=== PATIENT | male | born 1950 | race Caucasian/White ===

== ENCOUNTER 2023-10-03 11:23 | Emergency (ER) | payer MEDICARE, OTHER, SELFPAY ==
[2023-10-03 11:27] VITALS: BP 162/78
--- NOTE | 2023-10-03 13:16 | ED.GENMED ---
History of Present Illness
General
Chief Complaint: Musculo-Skeletal Complaint
Source: patient
Exam Limitations: none
Time Seen by Provider: 10/03/23 11:55
Nursing documentation reviewed up to this point in time: agreed with
Travel History
Have you had any contact with someone who has COVID-19?: No
Do you have any symptoms of coronavirus? Fever > 100 degrees, chills, cough, shortness of breath, sore throat, loss of taste or smell, muscle aches, or headache?: No
History of Present Illness
History of Present Illness:
73-year-old male with Rafael history of hypertension hyperlipidemia previous vascular surgery on his lower extremities currently on Plavix presenting to the emergency department today with concerns of swelling to his right upper extremity over the
past few days. He was sent to the emergency department for assessment with ultrasound by the primary care doctor. Denies any chest pain shortness of breath or additional concerns.
Past History
Past History
ED Past Medical History: GERD, HTN, Hypercholesterolemia and Other (Peripheral vascular disease, kidney stones)
ED Past Surgical History: Orthopedic, Urological and Other
Social History
Tobacco: Non-smoker
Alcohol: Occasional
Drug: None
Living: with family
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
Family History
Family History: Other (Noncontributory)
Review of Systems
Review of Systems
Allergies reviewed?: Yes
All Other Systems: ROS reviewed and negative except as documented in HPI and ROS
Phy Exam
Physical Exam
Physical Exam:
GENERAL: Alert , in no apparent distress
EYE: pupils equal and reactive
NECK: Supple, no significant adenopathy.
ENT: o/p clr, mmm.
CARDIAC: Regular rate and rhythm .
LUNGS: Clear breath sounds bilaterally, no acute respiratory distress, no wheezes/rales/rhonchi
ABDOMEN: Soft, without focal tenderness, no r/g, no cvat
NEUROLOGICAL: Alert and oriented, no focal neuro deficits
SKIN: Warm and dry, skin intact.
MUSCULOSKELETAL: Mild redness and warmth of the right forearm on the medial aspect. Does not cross the elbow., well perfused.
PSYCH: Normal and appropriate interaction.
Course
Orders/Labs/Results
Orders:
Orders
10/03/23 11:25
US Periph Venous UPPER Ext RT Urgent
Comment:
Reason For Exam: pain/swelling
Vital Signs
Initial and Last Documented VS:
Initial Vital Signs
Temp Pulse Resp BP Pulse Ox
98.0 F 54 17 162/78 99
10/03/23 11:27 10/03/23 11:27 10/03/23 11:27 10/03/23 11:27 10/03/23 11:27
Last Documented Vital Signs
Temp Pulse Resp BP Pulse Ox
98.0 F 54 17 162/78 99
10/03/23 11:27 10/03/23 11:27 10/03/23 11:27 10/03/23 11:27 10/03/23 11:27
MDM/Problems Addressed
MDM/Problems Addressed:
73-year-old male presenting to the emergency department today with concerns of small mount of redness and swelling to the right forearm over the past few days no specific inciting event. He had an ultrasound here that showed a superficial thrombus
to the basilic. This is not consistent with DVT patient was not started on anticoagulant but advised for close outpatient follow-up and conservative treatment at this time. He demonstrated understanding and will follow-up closely. Return
precautions given.
*Critical Care Note
Total Time (30-74mins, 75-104mins- exclusive of procedures): Not Applicable
ED Attending Note
-
Portions of this chart may have been created with voice recognition software.� Occasional wrong word or��sound alike� substitutions may have occurred due to the inherent limitations of voice recognition software.
Discharge Plan
Departure
Patient Disposition: Home (Routine Discharge)
Date of Disposition: 10/03/23
Time of Disposition: 13:17
Patient with high blood pressure during this ER visit?: No
Condition: Good
Covid-19: Not Applicable
Discharge Problem:
Acute thrombosis of superficial veins of right upper extremity
Instructions: Superficial vein phlebitis and thrombosis
Prescriptions:
No Action
multivitamin [One Daily] 1 EACH tablet
1 ea PO DAILY
cetirizine 10 MG tablet
10 mg PO DAILY
amlodipine 5 MG tablet
5 mg PO DAILY
aspirin [Adult Low Dose Aspirin] 81 MG tablet,delayed release (DR/EC)
81 mg PO HS
tamsulosin [Flomax] 0.4 MG capsule
0.4 mg PO QPM
docusate sodium 100 MG capsule
100 mg PO DAILY
gabapentin 300 MG capsule
300 mg PO QID
diazepam [Valium] 10 MG tablet
10 mg PO HS
lisinopril 40 MG tablet
40 mg PO DAILY
coenzyme Q10 [Co Q-10] 100 MG capsule
200 mg PO DAILY
krill oil 500 MG capsule
500 mg PO DAILY
L.acidoph, paracasei,B. lactis 1 EACH capsule
1 ea PO QPM
clopidogrel 75 MG tablet
75 mg PO DAILY Qty: 30 0RF
ezetimibe 10 MG tablet
10 mg PO HS
magnesium oxide 500 MG capsule
500 mg PO DAILY
ascorbic acid (vitamin C) [Vitamin C] 500 MG tablet
500 mg PO DAILY
famotidine 20 MG tablet
20 mg PO BID
oxycodone-acetaminophen 1 EACH tablet
1 ea PO QID
rosuvastatin 10 MG tablet
10 mg PO MOWEFR
Patient Comments:
PT TAKES IN PM
gabapentin 300 mg capsule
300 mg PO BID Qty: 30 0RF
amoxicillin-pot clavulanate 875-125 mg tablet
1 tab PO BID Qty: 14 0RF
Activity Restrictions/Additional Instructions:
You came to the emergency department today with concerns of swelling discomfort to the right upper extremity. You are found to have a clot in your basilic vein. This is considered a superficial vein and does not require emergent anticoagulation.
Please use warm compresses to the area and elevate your arm to help with symptoms and follow close with the primary care doctor within 1 week for further assessment and monitoring of this. Return to the emergency department any worsening, new or
concerning symptoms.
Interventions
Interventions:
*Risk Screen - Suicide Last Done: 10/03/23 11:27
*General Assessment Last Done: 10/03/23 11:27
*Neglect/Abuse Screening Last Done: 10/03/23 11:27
*ED COVID-19 Vaccine History Last Done: 10/03/23 11:27
[2023-10-03 13:21] VITALS: BP 153/87
== END 2023-10-03 13:27 | disposition home or self-care (01) ==
LOC: EMR 11:23
PROVIDERS: EMERGENCY PHYSICIAN Emergency Medicine; FAMILY PHYSICIAN Family Medicine
DX: I82.611 Acute embolism and thrombosis of superficial veins of right upper extremity (principal); I10 Essential (primary) hypertension; K21.9 Gastro-esophageal reflux disease without esophagitis; E78.00 Pure hypercholesterolemia, unspecified; I73.9 Peripheral vascular disease, unspecified; M19.90 Unspecified osteoarthritis, unspecified site; K57.92 Diverticulitis of intestine, part unspecified, without perforation or abscess without bleeding; Z87.442 Personal history of urinary calculi; Z87.891 Personal history of nicotine dependence; Z79.02 Long term (current) use of antithrombotics/antiplatelets; Z79.82 Long term (current) use of aspirin; Z88.6 Allergy status to analgesic agent; Z88.5 Allergy status to narcotic agent
CPT/HCPCS: 99284; 93971

== ENCOUNTER → 2023-12-26 11:04 | Outpatient (REF) | payer MEDICARE, OTHER, SELFPAY | LOC: RCS 11:04 | PROVIDERS: ATTENDING PHYSICIAN Internal Medicine Cardiovascular Disease; FAMILY PHYSICIAN Family Medicine | DX: R00.1 Bradycardia, unspecified (principal); I49.3 Ventricular premature depolarization; I44.7 Left bundle-branch block, unspecified | CPT/HCPCS: 93306 ==

== ENCOUNTER → 2024-01-06 07:40 | Outpatient (REF) | payer MEDICARE, OTHER, SELFPAY | LOC: MRI 07:40 | PROVIDERS: ATTENDING PHYSICIAN Orthopaedic Surgery Hand Surgery; FAMILY PHYSICIAN Family Medicine | DX: M75.122 Complete rotator cuff tear or rupture of left shoulder, not specified as traumatic (principal); M19.012 Primary osteoarthritis, left shoulder | CPT/HCPCS: 73221 ==

== ENCOUNTER → 2024-01-27 10:06 | Outpatient (REF) | payer MEDICARE, OTHER, SELFPAY | LOC: MRI 3T 10:06 | PROVIDERS: ATTENDING PHYSICIAN Physical Medicine & Rehabilitation; FAMILY PHYSICIAN Family Medicine | DX: M54.12 Radiculopathy, cervical region (principal) | CPT/HCPCS: 72141 ==

== ENCOUNTER → 2024-02-27 09:03 | Outpatient (REF) | payer MEDICARE, OTHER, SELFPAY | LOC: RAD 09:03 | PROVIDERS: ATTENDING PHYSICIAN Surgery Vascular Surgery; FAMILY PHYSICIAN Family Medicine | DX: I71.40 Abdominal aortic aneurysm, without rupture, unspecified (principal); I73.9 Peripheral vascular disease, unspecified | CPT/HCPCS: 76770; 93922; 93925 ==

== ENCOUNTER 2024-08-08 17:18 | Day surgery (SDC) | payer MEDICARE, OTHER, SELFPAY ==
[2024-08-08] VITALS (15 sets, daily range): BP systolic 116–182; BP diastolic 76–118; BMI 26.3
[2024-08-08 15:58] LABS: % Basophils 0.3 % (0-2); % Eosinophils 0.7 % (0-6); % Immature Granulocytes 0.3 % (0-0.5); % Lymphocytes 33.4 % (20.5-51.1); % Neutrophils 56.3 % (42.2-75.2); Absolute Monocytes 0.6 10^3/uL (0.1-0.6); Absolute Neutrophils 3.4 10^3/uL (1.4-6.5); Hematocrit 42.3 % (39.0-52.0); Hemoglobin 14.8 g/dL (13.0-18.0); Mean Corpuscular Hgb 34.3 pg (27.0-31.0); Mean Corpuscular Volume 97.9 fL (80.0-94.0); Mean Platelet Volume 9.1 fL (7.4-10.4); Nucleated Red Blood Cells % 0 % (-); Platelet Count 165 10^3/uL (130-400); Red Blood Cell Count 4.32 10^6/uL (4.70-6.10); Red Cell Dist. Width 13.3 % (11.5-14.5); White Blood Cell Count 6.1 10^3/uL (4.8-10.8)
[2024-08-08 16:12] LABS: ALT (SGPT) 27 U/L (0-50); AST (SGOT) 35 U/L (17-59); Alkaline Phosphatase 37 U/L (38-126); Blood Urea Nitrogen 33 mg/dl (9-20); Calcium 9.5 mg/dl (8.4-10.2); Carbon Dioxide 23 mmol/L (22-30); Chloride 108 mmol/L (98-107); Glucose 93 mg/dl (70-99); Potassium 4.4 mmol/L (3.5-5.1); Sodium 138 mmol/L (135-145); Total Bilirubin 0.4 mg/dl (0.2-1.3); Total Protein 6.2 g/dl (6.3-8.2); eGFR 48.25
[2024-08-08 16:22] LABS: Troponin I 0.379 ng/ml
--- NOTE | 2024-08-08 16:42 | CON.CAR ---
Addendum entered and electronically signed by Edwin Green MD 08/08/24 18:48:
Attending addendum: Patient seen and examined while in the emergency department. He arrived to [facility] with waxing and waning substernal chest tightness which was quite severe as he drove from work to the hospital and severe while
waiting in the waiting room. He reported symptoms throughout much of the evening last night. He has an underlying left bundle branch block since October 2023. Symptoms improved but did not completely resolve following the addition of 2 sublingual
nitroglycerin. The decision was made to refer directly for coronary angiography. Risk of the procedure were explained to the patient and family. Patient was agreeable to proceed with invasive assessment.
Original Note:
Consultation
Consultation Request
Date/Time Consultation Requested: 08/08/2024
Date/Time Consultation Performed: 08/08/24
Requesting Provider: Dr. Tavera
Performing Provider: Solange Li PA-C for Dr. Green
Reason for Consultation: CP
Medical History
-
Chief Complaint: CP
History of Present Illness:
Patient is a 73-year-old male with past medical history of hypertension, hyperlipidemia, coronary artery calcification by prior imaging, PAD with bilateral lower extremity stenting, history of statin intolerance, PVCs, abdominal aortic aneurysm, and
new left bundle branch block noted October 2023 who presented 08/08/2024 with substernal chest pain. Reports has been having waxing and waning chest discomfort since last evening which started around 10 PM. Patient thought it was indigestion and
took some antacid/Pepcid and then his sleeping pill and went to bed. He reports around 10:15 PM he woke up vomiting then felt better. He then went back to bed. When awakening this morning pain he noted some mild waxing and waning substernal chest
discomfort. He went to work and as the day progressed the pain would get more intense then get better and continued to wax and wane until he decided to come to emergency department. Pain on arrival was 4 out of 10. Did receive SL nitro x1 in ER
and 325mg asa with improvement of pain. Initial troponin 0.379. Creatinine 1.5, which is up from baseline. He was initiated on IV heparin and cardiology has been consulted. EKG sinus rhythm with left bundle branch block. Given concern for late
presentation NSTEMI patient was taken emergently to cardiac catheterization lab.
PMH:
Coronary artery calcification by prior CT imaging 2022
PAD with bilateral lower extremity arterial stents in 2019
Small abdominal aortic aneurysm
Hypertension
Hyperlipidemia
PVCs
History of statin intolerance
Left bundle branch block, new as of October 2023
Current smoker
Past Medical History
Past Medical History: Other (in HPI)
Past Surgical History: Bowel Resection (For diverticulitis), Orthopedic (Bilateral rotator repairs, back surgery, right knee surgery) and Other (Cataract extraction, left popliteal stenting 2018, right superficial femoral right artery and right
popliteal stenting 2019)
Social History
Tobacco: Smoker (Smokes a few cigarettes daily)
Personal:
Living: With Family
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
Family History
Family History: Diabetes and Hypertension
Allergies / Home Medications
Allergy/AdvReac Type Severity Reaction Status Date / Time
acetaminophen [From Endocet] Allergy Itching Verified 10/03/23 11:26
hydrocodone Allergy Itching Verified 10/03/23 11:26
oxycodone [From Endocet] Allergy Itching Verified 10/03/23 11:26
propoxyphene napsylate Allergy Itching Verified 10/03/23 11:26
[From Darvocet-N]
�Medication �Instructions �Recorded �Confirmed �Type
L.acidoph,paracasei,B.animalis 10 1 ea PO QPM 12/11/18 02/11/20 History
billion cell capsule
amlodipine 5 mg tablet 5 mg PO DAILY 12/11/18 02/11/20 History
aspirin 81 mg tablet,delayed 81 mg PO HS 12/11/18 02/11/20 History
release (Adult Low Dose Aspirin)
cetirizine 10 mg tablet 10 mg PO DAILY 12/11/18 02/11/20 History
clopidogrel 75 mg tablet 75 mg PO DAILY #30 tabs 12/11/18 02/11/20 Rx
coenzyme Q10 100 mg capsule (Co 200 mg PO DAILY 12/11/18 02/11/20 History
Q-10)
diazepam 10 mg tablet (Valium) 10 mg PO HS 12/11/18 02/11/20 History
docusate sodium 100 mg capsule 100 mg PO DAILY 12/11/18 02/11/20 History
gabapentin 300 mg capsule 300 mg PO QID 12/11/18 02/11/20 History
krill oil 500 mg capsule 500 mg PO DAILY 12/11/18 02/11/20 History
lisinopril 40 mg tablet 40 mg PO DAILY 12/11/18 02/11/20 History
multivitamin (One Daily tablet) 1 ea PO DAILY 12/11/18 02/11/20 History
tamsulosin 0.4 mg capsule (Flomax) 0.4 mg PO QPM 12/11/18 02/11/20 History
ezetimibe 10 mg tablet 10 mg PO HS 02/05/19 02/11/20 History
magnesium oxide 500 mg capsule 500 mg PO DAILY 02/05/19 02/11/20 History
ascorbic acid (vitamin C) 500 mg 500 mg PO DAILY 02/11/20 02/11/20 History
tablet (Vitamin C)
famotidine 20 mg tablet 20 mg PO BID 02/11/20 02/11/20 History
oxycodone-acetaminophen 7.5 mg-325 1 ea PO QID 02/11/20 02/11/20 History
mg tablet
rosuvastatin 10 mg tablet 10 mg PO MOWEFR 02/11/20 02/11/20 History
gabapentin 300 mg capsule 300 mg PO BID #30 caps 09/11/22 Rx
amoxicillin 875 mg-potassium 1 tab PO BID #14 tabs 03/06/23 Rx
clavulanate 125 mg tablet
Review of Systems
-
History Source: Patient
All other systems: Negative unless noted
Physical Exam
Vital Signs
Temp Pulse Resp BP Pulse Ox
97.9 F 67 18 133/82 99
08/08/24 15:44 08/08/24 16:30 08/08/24 16:31 08/08/24 16:28 08/08/24 16:31
GEN: No distress, awake, Ox3
HEENT: supple, anicteric, mmm
LUNGS: CTA, no wheezes/rales
CV: Reg, S1/S2, 1/6 syst LSB murmur
ABD: soft, BS+, NT/ND
EXT: No edema clubbing or cyanosis
NEURO: Gross non-focal
SKIN: No rash, warm, dry, pink
Lab Results
08/08/24 15:47
08/08/24 15:47
Troponin I 0.379 ng/ml H* 08/08/24 15:47
Physical Exam
General: No Apparent Distress and Comfortable
HEENT: Normocephalic, Anicteric and Moist Mucous Membranes
Respiratory: Clear and Non Labored Respirations
Cardiac: S1/S2 and Regular Rhythm
GI: Soft, Non Tender, Non Distended and Normal Bowel Sounds
Musculoskeletal: No Clubbing, No Cyanosis and No Edema
Skin: Warm and Dry
Neuro: AO x 3
Impression / Plan
-
PCP: Osmany Mendenhall
Primary Wastewater Manager: Dr. ELMIRA Barajas
Assessment:
Presentation 08/08/2024 with CP
Elevated troponin, suspected late presentation NSTEMI
JAK on CKD
Coronary artery calcification by prior CT imaging 2022
PAD with bilateral lower extremity arterial stents in 2019
Small abdominal aortic aneurysm
Hypertension
Hyperlipidemia
PVCs
History of statin intolerance
Left bundle branch block, new as of October 2023
Current smoker
7-day outpatient monitor completed October 2023: Normal sinus rhythm/sinus bradycardia with left bundle branch block. No advanced heart block or pauses. Rare PVCs, occasional (3%) PACs with brief runs of atrial tachycardia and accelerated
idioventricular rhythm.
Echo 12/26/2023: EF 55 to 60%, no regional wall motion abnormalities noted, mild concentric LVH, mild TR, PAP 33 mmHg, no pericardial or pleural effusion seen
Plan:
-Patient presents 08/08/2024 to [facility] due to chest discomfort which has been waxing and waning since last evening. Initial troponin elevated at 0.389. EKG sinus rhythm with left bundle branch block. Of note creatinine also up to 1.5
-Concern for late presentation NSTEMI with ongoing chest pain that was improved with sublingual nitroglycerin
-No recent stress testing, however was noted to have coronary artery calcifications by prior CT imaging in 2022, reported reviewed
-Continue IV heparin, aspirin.
-plan for urgent cardiac catheterization.
-follow Cr post cath
-Historically has had history of statin intolerance. Is on Repatha as outpatient
-not on BB as OP. on norvasc and lisinopril
-further recs based on results of cath
Plan discussed with hospitalist, ED physician, and patient's Beena [phone] over the phone in great detail
Data Reviewed
-
EKG: Tracing Personally Visualized and interpreted, Discussed with Physician, Discussed with Nurse, Discussed with Patient and Discussed with Family
Medical Tests (Nuc Med, Echo etc): Report Reviewed by me (old records)
Labs: Labs Reviewed by me, Discussed with Physician, Discussed with Nurse, Discussed with Patient and Discussed with Family
Old Records: Reviewed
[2024-08-08] MEDS: TYLENOL 650 MG PO (16:47)
[2024-08-08] MEDS: LOW STRENGTH ASPIRIN 324 MG PO (16:47)
[2024-08-08] MEDS: NITROSTAT (SUBLINGUAL) 0.4 MG SL (16:49)
--- NOTE | 2024-08-08 16:58 | ED.GENMED ---
History of Present Illness
General
Chief Complaint: Chest Pain
Source: patient
Time Seen by Provider: 08/08/24 16:15
History of Present Illness
History of Present Illness:
73-year-old male presents emergency room complaining of chest pain. Patient has been experiencing chest discomfort since last evening. Pain initially started after ascending a flight of steps while carrying his dog. He described the pain as a
crushing chest pain associated with some nausea and vomiting. Pain eventually subsided somewhat but perhaps never went away completely. Today the pain worsened prompting his visit to the emergency room. In triage she described his pain is
significant but it improved actually spontaneously going down again to a 2 out of 10 at the time of my evaluation. Patient does smoke a box of small cigars a day. He does have a history of significant peripheral vascular disease.
Past History
Past History
ED Past Medical History: GERD, HTN, Hypercholesterolemia and Other (Peripheral vascular disease, kidney stones)
ED Past Surgical History: Orthopedic, Urological and Other
Social History
Tobacco: Non-smoker
Alcohol: Occasional
Drug: None
Living: with family
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
Family History
Family History: Other (Noncontributory)
Phy Exam
Physical Exam
Physical Exam:
General: Awake, Alert, Oriented X3. No acute distress.
Vitals: unremarkable
Head: Atraumatic
Eyes: Pupils equal, EOMI
Throat: Airway intact, no exudates
Neck: Trachea midline
Lungs: Clear and equal b/l
Heart: Regular rate, no murmurs
Abd: Soft, Nontender, No pulsatile mass
Neuro: Nonfocal
Skin: Warm, dry, no rash
Extremities: pulses equal b/l, no edema
Scores
Heart Score for Chest Pain Patients
STEMI patient?: No
History: Highly Suspicious
ECG: Nonspecific Repolarization
Age: >/= 65 years
Risk Factors: >/= 3 Risk Factors or History of CAD
Troponin: >/= 3 x Normal Limit
Heart Score for Chest Pain Patients: 9
Heart Score Risk: 72.7 % MACE over next 6 weeks
Course
Orders/Labs/Results
Orders:
Orders
08/08/24 Dinner
Cholesterol Lowering
At Your Request: Full Participation
Does patient need a safe tray?: No
Cholesterol Lowering: Sodium, 2 Gram
Cholesterol Lowering
Cholesterol Lowering: Sodium, 2 Gram
08/08/24 15:34
ECG [Electrocardiogram (*1)] Urgent
Reason for Study: Chest Pain
EKG- Treatment ONCE
08/08/24 15:47
Complete Blood Count/With Diff Urgent
Comprehensive Metabolic Panel Urgent
Troponin I Urgent
08/08/24 16:39
Acetaminophen [Tylenol] 650 mg PO NOW STA
Aspirin Chewable [Low Strength Aspirin] 324 mg PO NOW STA
Heparin 4,000 units IV NOW STA
Nitroglycerin Sublingual [Nitrostat (Sublingual)] 0.4 mg SL [id number] PRN
Nursing to Place Non Medication Order As Directed
Physician Order: PTT 6 hours after initial start of Heparin infusion
Above order entered?: Yes
08/08/24 16:45
Heparin 97093 Units/250 ml 25,000 units in 250 ml IV PER PROTOCOL
Weight to be used for heparin protocol in kilograms (kg):: 72.8
Protocol:: Cardiac Tx/Acute Coronary
PTT Goal Range to be used:: PTT 73 to 111 seconds
Order type:: Initial
INITIAL Infusion Dose (UNITS/KG/hr) & then follow protocol:: 12 units/kg/hr
Infusion Dose in UNITS/hr & then follow protocol (UNITS/hr):: 850
INFUSION RATE in mL/hr & then follow protocol (mL/hr):: 8.5
PTT less than or equal to 64 seconds:: Increase rate by 200 units/hr (+ 2 mL/hr)
PTT 64.1 to 72.9 seconds:: Increase rate by 100 units/hr (+ 1 mL/hr)
PTT 73 to 111 seconds:: Target Range. No change in rate.
PTT 111.1 to 130.9 seconds:: Decrease rate by 100 units/hr (- 1 mL/hr)
PTT 131 to 199.9 seconds:: HOLD for 1 hr. Then decrease rate by 200 units/hr (- 2 mL/hr)
PTT greater than or equal to 200 seconds:: HOLD for 2 hrs & Notify Provider. Then decrease by 200 units/hr (-
2 mL/hr)
Lab follow-up:: Each change, PTT q6h until 2 consecutive are therapeutic. Then PTT
daily.
08/08/24 16:46
PTT Urgent
Comment: Obtain baseline before beginning heparin infusion if not already collected
08/08/24 17:05
Fentanyl Citrate/Pf [Sublimaze] 100 mcg .ROUTE .STK-MED ONE
Heparin 10,000 units .ROUTE .STK-MED ONE
Heparin 1000 Units/500 ml [Heparin] 1,000 units in 500 ml .ROUTE .STK-MED
Lidocaine HCl/Pf [Xylocaine-Mpf 1% Vial] 100 mg .ROUTE .STK-MED ONE
Midazolam HCl [Versed] 2 mg .ROUTE .STK-MED ONE
Verapamil Injectable [Isoptin/Verapamil Injection] 5 mg .ROUTE .STK-MED ONE
08/08/24 17:06
Heparin Sodium,Porcine/Ns/Pf [Heparin 2000 Units/1000 ml] 2,000 unit in 1,000 ml .ROUTE .STK-MED
Nitroglycerin [Tridil] 1,500 mcg .ROUTE .STK-MED ONE
08/08/24 17:21
Nitroglycerin [Tridil] 1,500 mcg .ROUTE .STK-MED ONE
08/08/24 17:29
Admit/Transfer Patient As Directed
Co-Sign Provider:
Level of Care: Inpatient admission
Assign to:: IVU
Physician / Group: nahomy,althea
Diagnosis: NSTEMI, JAK
Reason for Hospitalization: cardiac cath intervention
Expected length of stay greater than two midnights?: Yes
ELOS- Estimated Length of Stay in days: 3
I certify the patient meets the requirements for IP care: Yes
Code Status As Directed
Resuscitation Status: Full Code
08/08/24 17:33
PRN Pain Medication Management As Directed
May give lesser potent ordered pain med per pt: Yes
preference::
Protocol:: Medication orders for pain may be administered in a
manner that supports deferring to patient preference
when the pt is:
- Requesting an ordered lesser potent pain medication.
Least to most potent pain medications are defined
as: acetaminophen < NSAID < tramadol < opioids
(morphine, oxycodone, hydromorphone).
- Requesting a lesser dose of the same medication IF
ORDERED.
- Requesting a less intrusive route of administration
if both routes are prescribed by the provider (PO <
IV).
08/08/24 17:39
Ticagrelor [Brilinta] 180 mg .ROUTE .STK-MED ONE
08/08/24 17:40
Electrocardiogram (*1) Urgent
Reason for Study: Other
Other Reason for Exam: s/p intervention
Comment: dca
CARDIAC REHAB CONSULT Routine
Co-Sign Provider:
Type of Cardiac Rehab Referral: Outpatient
Diagnosis: NSTEMI
Date of Diagnosis/Surgery: 08/08/24
Referring Provider: Edwin Green
Acetaminophen [Tylenol] 650 mg PO Q4HPRN PRN
Activity As Directed
Activity Level: Out of Bed- Chair
Comment: bed/chair rest for 2 hours then out of bed ad heidi
Director Of Housing Procedure As Directed
Cardiac Cath Procedure: percutaneous coronary intervention
Intake/ Output As Directed
Frequency: Per unit guidelines
Notify MD As Directed
Notify physician if: immediately for chest pain or bleeding from access site(s)
Radial Artery Hemostasis Method As Directed
Instructions:: 3 mL out at 2 hour posts placement of band
3 mL out at 2 1/2 hours post placement of band
3 mL out at 3 hours post placement of band
Off at 3 1/2 hours post placement of band
If any oozing or hemotoma occurs:: re-inflate band and call provider
Site Checks As Directed
Check access site for bleeding/hematoma: Yes
Comment: on arrival, Q15min x4, Q30min x2, Q1 hr x2, Q2 hr x2, Q4 hr or per
protocol
Vascular Checks As Directed
Location: distal to access site - pulse check
Frequency: Other
Comment: on arrival, Q15min x4, Q30min x2, Q1 hr x2, Q2 hr x2, Q4 hr or per protocol
Vital Signs As Directed
Frequency: Other
Additional Instructions:: on arrival, Q15min x4, Q30min x2, Q1 hr x2, Q2 hr x2, then Q4 hr or per unit
protocol
08/08/24 17:45
0.9% Sodium Chloride 1000 ml [Nss] 1,000 ml IV PER PROTOCOL
Infusion rate in mL/kg/hr:: 1.5
Infusion rate in mL/hr:: 109
Duration of infusion (hours):: 5
08/08/24 18:32
0.9% Sodium Chloride 1000 ml [Nss] 1,000 ml IV 80 mls/hr
Oxycodone/Acetaminophen [Percocet 5/325] 1 tablet PO Q4HPRN PRN
08/08/24 18:32
CARDIOLOGY CONSULT Urgent
Consulting Provider: Jarred Joiner
Was physician already notified: Yes
Reason for consult: nstemi
Activity As Directed
Activity Level: As Tolerated
Intake/ Output As Directed
Frequency: Per unit guidelines
Pneumatic Compression Sleeves As Directed
Type: Knee high
Vital Signs As Directed
Frequency: Per unit guidelines
Weight As Directed
Frequency: Daily
Ot Eval And Treat Routine
Pt Eval And Treat Routine
Activity Level: As Tolerated
DX Deep Vein Thrombosis Video Routine
08/08/24 18:41
Pt Screening Request from [facility] Routine
08/08/24 19:00
Flush (0.9% Sodium Chloride) [Flush (Nss)] See Dose Instructions IV PER PROTOCOL
08/08/24 21:00
Troponin I Q6H
Acetaminophen [Tylenol] 650 mg PO Q4HPRN PRN
Tamsulosin [Flomax] 0.4 mg PO QPM
08/08/24 22:00
Aspirin Low Dose EC [Aspir Low (Enteric Coated)] 81 mg PO HS
Diazepam [Valium] 5 mg PO HS
Pregabalin [Lyrica] 75 mg PO TID
Trazodone [Desyrel] 50 mg PO HS
08/09/24 06:00
Electrocardiogram (*1) IN AM
Reason for Study: Other
Other Reason for Exam: s/p intervention
Comment: dca
Cardiovascular Evaluation IN AM
Complete Blood Count/With Diff IN AM
Comprehensive Metabolic Panel IN AM
Magnesium IN AM
08/09/24 08:00
Amlodipine [Norvasc] 5 mg PO DAILY
Cetirizine HCl [Zyrtec] 10 mg PO DAILY
Famotidine [Pepcid] 10 mg PO DAILY
Ticagrelor [Brilinta] 90 mg PO BID
08/10/24 06:00
Complete Blood Count/With Diff IN AM
Comprehensive Metabolic Panel IN AM
08/11/24 06:00
Complete Blood Count/With Diff IN AM
Comprehensive Metabolic Panel IN AM
Abnormal Lab Results
08/08/24 08/08/24 08/08/24
15:47 17:45 17:58
RBC 4.32 L 10^6/uL
(4.70-6.10)
MCV 97.9 H fL
(80.0-94.0)
MCH 34.3 H pg
(27.0-31.0)
Chloride 108 H mmol/L
(98-107)
BUN 33 H mg/dl
(9-20)
Creatinine 1.5 H mg/dL
(0.7-1.3)
Alkaline Phosphatase 37 L U/L
(38-126)
Troponin I 0.379 H* ng/ml
Total Protein 6.2 L g/dl
(6.3-8.2)
POC ACT Low Range 292 H Seconds 324 H Seconds
(116-155) (116-155)
08/08/24
18:14
RBC
MCV
MCH
Chloride
BUN
Creatinine
Alkaline Phosphatase
Troponin I
Total Protein
POC ACT Low Range 281 H Seconds
(116-155)
08/08/24 15:47
08/08/24 15:47
Vital Signs
Initial and Last Documented VS:
Initial Vital Signs
Temp Pulse Resp BP Pulse Ox
97.9 F 64 16 137/76 99
08/08/24 15:44 08/08/24 15:44 08/08/24 15:44 08/08/24 15:44 08/08/24 15:44
Last Documented Vital Signs
Temp Pulse Resp BP Pulse Ox
97.9 F 61 18 178/98 99
08/08/24 18:44 08/08/24 20:40 08/08/24 18:44 08/08/24 20:40 08/08/24 19:45
MDM/Problems Addressed
Differential Diagnosis Includes:
NSTEMI, stable angina, pneumothorax, chest wall pain
MDM/Problems Addressed:
Patient presents with chest pain that is highly concerning for acute coronary syndrome. His EKG shows a left bundle branch block. This was not present on his last EKG done here in [facility] however review of his cardiology office notes
reveal that it is pre-existing. Labs show that his troponin is elevated. Cardiology consultation obtained. Dr. Arnold came to emergency room to evaluate the patient. He will take the patient to the Director Of Housing.
Chronic conditions affecting care: HTN and Other (Peripheral vascular disease)
*Pulse Oximetry
Patient hypoxic: no
*EKG
Interpreted by ED Provider?: Yes
Interpretation: abnormal
Heart Rate: 68
Rate: normal
Rhythm: sinus
QRS Pattern: left bundle branch block
Ischemia: no ischemia
*Alining Inspector Interpretation
Rate: normal
Interpretation: abnormal
Rhythm: sinus
*Critical Care Note
Total Time (30-74mins, 75-104mins- exclusive of procedures): 35 min
comment:
Critical care statement: A total of 35 minutes of critical care time was provided for this patient. This includes management of unstable vital signs, evaluation of the patient at bedside, reviewing the patient's pertinent medical records, discussion
with consultants, review of old EKGs and review of pertinent medical records. This time with separate from time utilized to perform the aforementioned documented procedures
Patient Management
Discussion with other providers: Hospitalist and Tipple Greaser (Dr. Green)
ED Attending Note
-
Portions of this chart may have been created with voice recognition software.� Occasional wrong word or��sound alike� substitutions may have occurred due to the inherent limitations of voice recognition software.
Discharge Plan
Departure
Patient Disposition: Admit
Date of Disposition: 08/08/24
Time of Disposition: 17:02
Admit to: company laborer
Presentation/result/management discussed w/ accepting MD/DO: Hospitalist
Condition: Serious
Discharge Problem:
Acute non-ST elevation myocardial infarction (NSTEMI)
Interventions
Interventions:
*Risk Screen - Suicide Last Done: 08/08/24 15:45
*General Assessment Last Done: 08/08/24 16:29
*Neglect/Abuse Screening Last Done: 08/08/24 15:45
ED- Fall Risk Assessment Last Done: 08/08/24 16:30
*ED COVID-19 Vaccine History Last Done: 08/08/24 16:29
*Nursing Disposition Last Done: 08/08/24 17:20
ED- Cardiac Assessment Last Done: 08/08/24 16:30
Discharge Date and Time
Discharge Date/Time: 08/08/24 17:22
[2024-08-08] MEDS: HEPARIN 4000 UNITS IV (16:59)
--- NOTE | 2024-08-08 17:22 | HPS.HSE ---
Family Physician
-
Family Physician: INTERVIEWE UNKNOWN - PT NOT
Chief Complaint
-
Chest pain midsternal
History of Present Illness
73-year-old male who states last night around 930 he had midsternal chest pain 10 out of 10 with indigestion. He reports taking a Pepcid AC then going to bed at 10 PM. 15 minutes later at 1015 he woke up and vomited. He states after vomiting the
chest pain went away and he was able to sleep until 515 this morning. 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 He reports somewhere around 2 PM the midsternal chest pain returned 8 out of
10 when he decided to come to the hospital for evaluation he was given 4 baby aspirin and 1 nitroglycerin and Tylenol which took his chest pain from 8 out of 10 to currently 0 out of 10 at 1710 PM. He had troponin elevation of 0.379 and was taken
to the Deck Officer by . He reports at age 38 he had balloon angioplasty but states he did not require any other intervention after that. His was made aware he is here at the hospital and going for cardiac cath by Solange FRAZIER physician
fitter's assistant. 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 Patient is past medical history of hypertension, HLD, active smoker cigars, CKD 3B ?, GERD,
neuropathy, osteoarthritis with chronic pain, BPH, diverticulitis/colon resection, seasonal allergies.
Medical History
Past Medical History
Past Medical History: Reports Other
Additional Past Medical History:
hypertension,
HLD
active smoker cigars
CKD 3B ?
GERD
neuropathy
osteoarthritis with chronic pain
BPH
diverticulitis/colon resection
seasonal allergies
Past Surgical History: Reports Other
Additional Past Surgical History:
Left and right rotator cuff repair
Knee replacement
Back surgery
Cataract extraction bilateral
Colon resection secondary to diverticulitis
Balloon angioplasty age 38 per patient
Social History
Tobacco: Smoker (3 to 10 cigars daily)
Alcohol: None
Drug: None
Personal:
Living: With Family
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
Family History
Family History: Other (Mother history of CAD)
Allergies / Home Medications
Allergies reflects when Allergies were last updated in [facility].
Home Medications with original date entered in [facility]
Allergy/Medication List:
Allergies
Allergy/AdvReac Type Severity Reaction Status Date / Time
acetaminophen [From Endocet] Allergy Itching Verified 10/03/23 11:26
hydrocodone Allergy Itching Verified 10/03/23 11:26
oxycodone [From Endocet] Allergy Itching Verified 10/03/23 11:26
propoxyphene napsylate Allergy Itching Verified 10/03/23 11:26
[From Darvocet-N]
Home Medications
amlodipine 5 mg tablet 5 mg PO DAILY 12/11/18
aspirin 81 mg tablet,delayed release (Adult Low Dose Aspirin) 81 mg PO HS 12/11/18
cetirizine 10 mg tablet 10 mg PO DAILY 12/11/18
diazepam 10 mg tablet (Valium) 5 mg PO HS 12/11/18
lisinopril 40 mg tablet 40 mg PO DAILY 12/11/18
famotidine 20 mg tablet 10 mg PO DAILY 02/11/20
alfuzosin 10 mg tablet,extended release 24 hr 10 mg PO QPM 08/08/24
celecoxib 200 mg capsule 200 mg PO DAILY 08/08/24
evolocumab 140 mg/mL subcutaneous pen injector (Repatha SureClick) 140 mg SC Q2W 08/08/24
oxycodone-acetaminophen 5 mg-325 mg tablet 1 tab PO Q4HPRN PRN severe pain 08/08/24
pregabalin 75 mg capsule 75 mg PO TID 12/20/24
trazodone 100 mg tablet 50 mg PO HS 08/08/24
Review of Systems
-
History Source: Patient
A 12 point ROS was completed and negative except as noted: Yes
Constitutional: Denies Fever, Fatigue or Chills
EENT: Denies Sore Throat or Runny Nose
Respiratory: Denies Cough or Trouble Breathing
Cardiac: Reports Chest Pain (Midsternal); Denies Diaphoresis, Palpitations or Syncope
Abdomen/GI: Reports Vomiting (Last night 08/07/2024 at 20 2:15 PM x 1); Denies Abdominal Pain, Nausea, Diarrhea, Constipated, Bloody Stools or Black Stools
: Denies Dysuria, Frequency, Flank Pain, Incontinence, Difficulty Voiding or Urgency
Musculoskeletal: Denies Joint Pain, Joint Swelling or Edema
Skin: Denies Itching or Rash
Neurological: Denies Dizzy, Headache or Weakness
Endocrine: Reports No Symptoms
Hematologic/Lymphatic: Reports No Symptoms
Psych: Reports Calm
Physical Exam
Vital Signs
Vital Signs
Temp Pulse Resp BP Pulse Ox
97.9 F 65 12 130/88 97
08/08/24 15:44 08/08/24 17:00 08/08/24 17:00 08/08/24 17:00 08/08/24 17:00
Physical Exam
General: Conversant and Pain; No Fever or Chills
HEENT: NormoCephalic, Anicteric, Moist mucous membranes, PERRLA, [place] Conjunctivae and No Ptosis
Respiratory: Clear; No Wheezes, Rales or Rhonchi
Cardiac: S1/S2 and Regular Rhythm; No Murmur, Rub, Gallop or Peripheral Edema
Breast: Deferred by me
GI: Soft, Non Tender, Non Distended, Normal Bowel Sounds and No Hepatosplenomegaly
Rectal: Deferred by Provider
Genito-urinary: Deferred by me
Musculoskeletal: No Clubbing, No Cyanosis and No Edema
Skin: Warm and Dry; No Rash or Jaundice
Neuro: AO x 3, No Motor Deficits, Nonfocal/grossly intact, Cranial Nerves Intact and No Sensory Deficits; No Slurred Speech, Facial Droop, Tremors or Sedated
Psych: Calm
Laboratory Results
-
08/08/24 15:47
08/08/24 15:47
Laboratory Results
Total Bilirubin 0.4 mg/dl (0.2-1.3) 08/08/24 15:47
AST 35 U/L (17-59) 08/08/24 15:47
ALT 27 U/L (0-50) 08/08/24 15:47
Alkaline Phosphatase 37 U/L (38-126) L 08/08/24 15:47
Troponin I 0.379 ng/ml H* 08/08/24 15:47
Data Reviewed
-
Lab Data: Labs Reviewed by me
Impression/Plan
-
Impression/plan:
Admit to IVU
#NSTEMI
#History of balloon angioplasty age 38 patient reports
Symptoms starting last evening 08/07/2024 9:20 PM midsternal with indigestion and vomiting x 1
Troponin 0.379 will trend
-Patient given 4 baby aspirin, 1 nitroglycerin, Tylenol 650 mg in ER with relief of chest pain 8 out of 10 to 0 out of 10 at 1710 PM
-N.p.o. for urgent Deck Officer at 1715 p.m.
-HOLD Celebrex 200 mg daily
-Continue aspirin 81 mg daily
#JAK on possible CKD 3B
Creatinine 1.5 prior creatinine 1.2 on 03/06/2023(no prior GFR)
-Will give IV NSS at 80 cc/h
-Check BMP in a.m.
-Hold lisinopril 40 mg daily
#Active smoker
3 to 10 cigars daily
-Cessation advised
#GERD
-Continue famotidine 10 mg daily
#HTN�benign
BP 133/82
-Continue amlodipine 5 mg daily
#HLD
Check lipid profile
-Continue Repatha 140 mg subcu 2 weeks
#Osteoarthritis/chronic pain
-Hold Celebrex 200 mg daily given NSTEMI
-Continue oxycodone/acetaminophen 1 tab p.o. every 4 hours as needed severe pain
-Add Tylenol as needed mild pain
#Neuropathy
-Continue Lyrica 75 mg 3 times daily, Valium 5 mg at bedtime
#BPH
-Continue alfuzosin 10 mg every afternoon
#Seasonal allergies
Continue cetirizine 10 mg daily
DVT prophylaxis
SCDs for now
IV heparin drip possible per cardiology
Full code
[2024-08-08 17:36] LABS: APTT 30.1 Sec (23.4-35.0)
[2024-08-08 17:51] LABS: ACT-LR - POC 292 Seconds (116-155)
[2024-08-08 18:03] LABS: ACT-LR - POC 324 Seconds (116-155)
[2024-08-08 18:19] LABS: ACT-LR - POC 281 Seconds (116-155)
--- NOTE | 2024-08-08 18:22 | W.PN.UPDATE ---
Update Note
Progress Note Update
This note serves as an addendum to the H&P by janitorial services supervisor HALLE Nori GRIGGS
HPI
73M Current smoker HX Hypertension, HLD, suspected CKD3b seen at ER :
- acute midsternal CP 10 out of 10 with indigestion.
- CP is preceded by vomiting
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
- Around 2 PM the midsternal CO recuured 8 out of 10 when he decided to come to the hospital for evaluation
- was given 4 baby aspirin and 1 nitroglycerin and Tylenol which took his chest pain from 8 out of 10 to currently 0 out of 10 at 1710 PM.
At ER:
POSTPNI 0.379 and was taken to the Groundskeeping Maintenance Worker by .
At age 38 HX balloon PTCA but states he did not require any other intervention after that.
PMHX
Hypertension
HLD
CKD 3B ?
GERD
Neuropathy
OA with chronic pain
BPH
Diverticulitis/colon resection
Reviewed VS:
Vital Signs
Temp Pulse Resp BP Pulse Ox
97.9 F 65 12 130/88 97
08/08/24 15:44 08/08/24 17:00 08/08/24 17:00 08/08/24 17:00 08/08/24 17:00
PE
General: Conversant
HEENT: Moist mucous membranes, PERRLA
Respiratory: Clear; No Wheezes, Rales or Rhonchi
Cardiac: S1/S2 and Regular Rhythm; No Murmur
Breast: Deferred by me
GI: Soft, Non Tender, Non Distended, Normal Bowel Sounds and No Hepatosplenomegaly
Rectal: Deferred by Provider
Genito-urinary: Deferred by me
Musculoskeletal: No Clubbing, No Cyanosis and No Edema
Skin: Warm and Dry; No Rash or Jaundice
Neuro: AO x 3, No Motor Deficits, Nonfocal/grossly intact,
Psych: Calm
Laboratory Tests
03/06/23 08/08/24
11:59 15:47
WBC 6.1
Hgb 14.8
Plt Count 165
Chloride 108 H
BUN 33 H
Creatinine 1.2 1.5 H
eGFR 48.25
Troponin I 0.379 H*
EKG report
NORMAL SINUS RHYTHM
LEFT BUNDLE BRANCH BLOCK
ABNORMAL ECG
WHEN COMPARED WITH ECG OF 28-SEP-2020 14:35,
LEFT BUNDLE BRANCH BLOCK IS NOW PRESENT
Confirmed by LESA SEGURA MD (ELLIE) ([id number]) on 08/08/2024 5:25:57 PM
ASSESSMENT & PLAN
NSTEMI
HX balloon PTCA @ age 38 per patient reports
Onset: last evening 08/07/2024 9:20 PM midsternal with indigestion and vomiting x 1
- Troponin 0.379 will trend
- s/p 4 baby aspirin, 1 nitroglycerin, Tylenol 650 mg in ER with relief of chest pain 8 out of 10 to 0 out of 10 at 1710 PM
- NPO and urgwent Groundskeeping Maintenance Worker at 1715 p.m.
- Hold Celebrex 200 mg daily
- Continue aspirin 81 mg daily
- Defer post cath aorders to Dr Green
JAK on possible CKD 3B
Creatinine 1.5 prior creatinine 1.2 on 03/06/2023 (no prior GFR)
- IV NSS at 80 cc/h
- Check BMP in a.m.
- Hold lisinopril 40 mg daily
- Trend Cr in AM
DVT Px: per Card
Code: Full code
IVU
--- NOTE | 2024-08-08 18:36 | ITS.CL.CATH ---
[facility] - Catheterization
Cardiac Catheterization
Procedure Report:
LEFT HEART CATH AND CORONARY INTERVENTION
Date of Procedure: August 08, 2024
Referring: Dr. Edwin Barajas
PROCEDURES:
1. Left heart catheterization with coronary and single-plane left ventriculography
2. Successful stenting of the mid LAD with a 3.0 x 18 mm Solomon stent that was postdilated to high pressures with a 3.25 mm noncompliant balloon
INDICATION: This is a 73-year-old gentleman with a prior history of peripheral vascular disease and stenting of both lower extremities. He has a left bundle branch block since October 2023. He is intolerant to statin therapy and is chronically
maintained on Repatha with his last LDL cholesterol measuring over 100 mg/dL. He presented to [facility] for evaluation of substernal chest pressure beginning last evening. His troponin returned at 0.379 ng/mL. He became chest pain-free
but given his left bundle branch block and symptoms a decision was made to refer for immediate coronary angiography.
ACCESS: Right radial artery, 6 [place] sheath
HEMODYNAMICS (mmHg):
AO (s/d, m) : 129/73, 96
LV (s/d) : 127/12
LVEDP : 16
CORONARY FINDINGS
Dominance: Right
LEFT MAIN: Normal
LEFT ANTERIOR DESCENDING: The LAD arises normally from the left main running in the anterior interventricular groove. A sizable bifurcating diagonal branch arises from the proximal third of the LAD. The mid LAD beyond the diagonal branch has a 50%
then hazy 70% stenosis in the mid LAD. The mid to distal LAD has luminal irregularities.
CIRCUMFLEX: The circumflex gives rise to a medium caliber OM1 that arises proximally and smaller OM 2. Minor irregularities.
RIGHT CORONARY: The right coronary artery is a medium caliber dominant vessel with minor irregularities
VENTRICULOGRAPHY: Left ventriculography was performed in an EATON projection. The digital single-plane left ventricular ejection fraction is estimated 55% with mild anterior hypokinesis
ANGIOPLASTY PROCEDURE DETAIL: Upon review of the diagnostic catheterization films a decision was made to proceed with percutaneous revascularization of the high-grade mid LAD stenosis. A 180 mg loading dose of ticagrelor was administered.
Intravenous heparin was given and the ACT was monitored throughout the procedure. The origin of the left main was cannulated with a 6 [place] EBU 3.5 guiding catheter and a BMW guidewire across the stenotic segment in the mid LAD and was advanced to
the distal vessel. Balloon predilation was performed using a 2.5 mm noncompliant balloon and was followed by placement of a 3.0 x 18 mm Xience stent in the mid LAD which was implanted at nominal pressures then postdilated with a 3.25 mm
noncompliant balloon to 14 derrick with a nice angiographic result
RADIATION SUMMARY: Fluoro Time (min): 12.3, Dose (mGy): 1391, DAP (Gy.cm2) : 94.6
CONCLUSIONS
1. Acute coronary syndrome with high-grade mid LAD stenosis successfully treated with placement of a 3.0 x 18 mm [place] stent that was postdilated with a 3.25 mm noncompliant balloon
2. Preserved LV systolic function
RECOMMENDATIONS
1. Uninterrupted dual antiplatelet therapy with aspirin and ticagrelor. Will ask case management to evaluate the cost for Brilinta
2. LDL cholesterol has been elevated in the past and he has been intolerant to statin therapy. He he is chronically maintained on lipid-lowering with PCSK9 inhibitor. I would strongly advocate for the addition of either ezetimibe or low-dose
rosuvastatin or atorvastatin 3 times weekly
3. Needs continued tight control of blood pressure
4. Encourage smoking cessation
Copy to: Dr. Edwin Barajas
--- NOTE | 2024-08-08 19:26 | PTCARENOTE ---
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 Right radial band in place, no sign of bleeding or hematoma. Pt denied discomfort on arrival to IVU. Telemetry shows sinus rhythm with LBBB. Plan of care and activity restrictions reviewed with pt. Pt
reported recent fall due to dizziness while carrying his 8lb dog upstairs. Fall precautions in place, pt states understanding.
[2024-08-08] MEDS: FLOMAX 0.4 MG PO (20:27)
[2024-08-08] MEDS: NSS 1000 IV (21:01)
[2024-08-08] MEDS: LYRICA 75 MG PO (21:58)
[2024-08-08] MEDS: VALIUM 5 MG PO (21:59)
[2024-08-08] MEDS: DESYREL 50 MG PO (21:59)
[2024-08-08] MEDS: ASPIR LOW (ENTERIC COATED) 81 MG PO (21:59)
[2024-08-08 22:51] LABS: Troponin I 0.288 ng/ml
--- NOTE | 2024-08-09 | PTCARENOTE ---
Pt rec'd at beginning of shift awake alert anxious. family at bedside. Pt with c/o sob with minimal exertion however sob improved quickly with rest. sat's 99-100% on R/A- lungs decreased but clear. Sinus on telemetry with elevated b/p. [employer] Manager
notified. b/p rechecked manually with b/p remaining high. [employer] Manager ordered pm meds to be given little earlier. Right radial site band removed. some ecchymosis noted but no palpable hematoma present. Troponin trending down.
[2024-08-09 03:07] VITALS: BP 162/92
[2024-08-09 03:23] LABS: % Basophils 0.3 % (0-2); % Eosinophils 1.3 % (0-6); % Immature Granulocytes 0.5 % (0-0.5); % Lymphocytes 35.5 % (20.5-51.1); % Monocytes 8.9 % (1.7-9.3); % Neutrophils 53.5 % (42.2-75.2); Absolute Eosinophils 0.1 10^3/uL (0-0.7); Absolute Lymphocytes 2.3 10^3/uL (1.2-3.4); Absolute Monocytes 0.6 10^3/uL (0.1-0.6); Absolute Neutrophils 3.4 10^3/uL (1.4-6.5); Hematocrit 42.3 % (39.0-52.0); Hemoglobin 14.3 g/dL (13.0-18.0); Mean Corp Hgb Conc. 33.8 g/dL (33.0-37.0); Mean Corpuscular Hgb 33.9 pg (27.0-31.0); Mean Corpuscular Volume 100.2 fL (80.0-94.0); Mean Platelet Volume 9.8 fL (7.4-10.4); Nucleated Red Blood Cells % 0 % (-); Platelet Count 137 10^3/uL (130-400); Red Blood Cell Count 4.22 10^6/uL (4.70-6.10); Red Cell Dist. Width 13.4 % (11.5-14.5); White Blood Cell Count 6.4 10^3/uL (4.8-10.8)
[2024-08-09 03:53] LABS: ALT (SGPT) 25 U/L (0-50); AST (SGOT) 27 U/L (17-59); Albumin 3.7 g/dl (3.5-5.0); Alkaline Phosphatase 48 U/L (38-126); Blood Urea Nitrogen 26 mg/dl (9-20); Carbon Dioxide 23 mmol/L (22-30); Chloride 108 mmol/L (98-107); Estimated Creatinine Clearance 47 ml/min; Glucose 99 mg/dl (70-99); HDL Cholesterol 44 mg/dl; LDL Cholesterol, Calculated 74 mg/dl; Magnesium 2.4 mg/dl (1.6-2.3); Potassium 3.9 mmol/L (3.5-5.1); Sodium 139 mmol/L (135-145); Total Bilirubin 0.7 mg/dl (0.2-1.3); Total Cholesterol 144 mg/dl (50-199); Total Protein 5.8 g/dl (6.3-8.2); Triglyceride 132 mg/dl (10-149); Very Low Density Lipoprotein 26 mg/dl (0-30); eGFR > 60.00
[2024-08-09 07:06] VITALS: BMI 26.1
--- NOTE | 2024-08-09 08:00 | W.PN.CARDCBS ---
Addendum entered and electronically signed by Solange Li PA-C 08/09/24 12:21:
dictated d/c summary#[id number]
Addendum entered and electronically signed by Jarred Joiner MD 08/09/24 09:30:
I saw and examined the patient.
The Hand Picker's note was reviewed and I agree with the note.
Comment:
GEN: No distress, awake, Ox3
HEENT: supple, anicteric, mmm
LUNGS: CTA, no wheezes/rales
CV: Reg, S1/S2, 1/6 syst LSB, no gallop
ABD: soft, BS+, NT/ND
EXT: No edema
NEURO: Gross non-focal
SKIN: No rash
Plan:
Doing well status post LAD PCI. Continue aspirin and Brilinta for 1 year.
Add Zetia to Repatha. No beta-bobo due to bradycardia.
Continue amlodipine and lisinopril. Creatinine at 1.2.
Original Note:
Today's Communication / Plan
-
Dual antiplatelet therapy with aspirin and Brilinta for 1 year
Add Zetia to outpatient regimen of Repatha
Cardiac rehab as outpatient
Patient stable from cardiac standpoint for discharge. Outpatient cardiology follow-up arranged
Impression / Plan
-
PCP: Osmany Mendenhall
Primary Lactation Nurse: Dr. ELMIRA Barajas
Assessment:
Presentation 08/08/2024 with CP
Elevated troponin, peaked 0.389
Suspected late presentation NSTEMI,
Successful stenting of the mid LAD with a 3.0 x 18 mm Solomon stent
JAK on CKD, resolved
Coronary artery calcification by prior CT imaging 2022
PAD with bilateral lower extremity arterial stents in 2019
Small abdominal aortic aneurysm
Hypertension
Hyperlipidemia
PVCs
History of statin intolerance
Left bundle branch block, new as of October 2023
Current smoker
Cardiac catheterization 08/08/2024: LM: Normal. LAD: Mid 50% then hazy 70% stenosis status post 3.0 x 18 mm [place] VIV. Left circumflex: LI. RCA: LI. HEMODYNAMICS (mmHg): AO (s/d, m) : 129/73, 96, LV (s/d) : 127/12, LVEDP : 16
7-day outpatient monitor completed October 2023: Normal sinus rhythm/sinus bradycardia with left bundle branch block. No advanced heart block or pauses. Rare PVCs, occasional (3%) PACs with brief runs of atrial tachycardia and accelerated
idioventricular rhythm.
Echo 12/26/2023: EF 55 to 60%, no regional wall motion abnormalities noted, mild concentric LVH, mild TR, PAP 33 mmHg, no pericardial or pleural effusion seen
Plan:
-Patient presented 08/08/2024 to [facility] due to chest discomfort which has been waxing and waning since last evening. Initial/peak troponin 0.389. EKG sinus rhythm with left bundle branch block.
-Concern for late presentation NSTEMI with ongoing waxing and waning chest pain x 20 hours that was improved with sublingual nitroglycerin
-Patient underwent cardiac catheterization and was found to have mid LAD stenosis for which he underwent PCI with a 3.0 x 18 mm Solomon stent with excellent results.
-Troponin downward trending.
-Patient now chest pain/indigestion free. He was able to ambulate around the room without anginal symptoms or shortness of breath.
-Right radial access site with hemostasis. Ecchymosis noted without hematoma
-Patient will need dual antiplatelet therapy with aspirin and Brilinta for 1 year. Case management consulted for cost analysis.
-Left ventriculogram during catheterization EF 55% with mild anterior hypokinesis. Can check echocardiogram as outpatient
-No arrhythmias noted on telemetry overnight. Patient does have underlying bradycardia with heart rates in the upper 40s to low 50s which prevents initiation of beta-bobo therapy.
-Continue amlodipine and lisinopril.
-Creatinine 1.5 on admission. Got IV fluids currently 1.2.
-Historically has had history of statin intolerance. Is on Repatha. Lipids 08/09/2024 TC 144, HDL 44, LDL 74, triglycerides 132. Hemoglobin A1c pending. Patient is adamant he does not want to start a statin. Discussed Zetia versus Nexletol in
conjunction with Repatha. Patient is agreeable to start Zetia
-Would stop Celebrex due to increased risk of bleeding with DAPT
-Recommended cardiac rehab
-Patient stable from cardiac standpoint and can be discharged to home. Outpatient cardiology follow-up has been arranged
HPI 08/08/2024:
History of Present Illness:
Patient is a 73-year-old male with past medical history of hypertension, hyperlipidemia, coronary artery calcification by prior imaging, PAD with bilateral lower extremity stenting, history of statin intolerance, PVCs, abdominal aortic aneurysm, and
new left bundle branch block noted October 2023 who presented 08/08/2024 with substernal chest pain. Reports has been having waxing and waning chest discomfort since last evening which started around 10 PM. Patient thought it was indigestion and
took some antacid/Pepcid and then his sleeping pill and went to bed. He reports around 10:15 PM he woke up vomiting then felt better. He then went back to bed. When awakening this morning pain he noted some mild waxing and waning substernal chest
discomfort. He went to work and as the day progressed the pain would get more intense then get better and continued to wax and wane until he decided to come to emergency department. Pain on arrival was 4 out of 10. Did receive SL nitro x1 in ER
and 325mg asa with improvement of pain. Initial troponin 0.379. Creatinine 1.5, which is up from baseline. He was initiated on IV heparin and cardiology has been consulted. EKG sinus rhythm with left bundle branch block. Given concern for late
presentation NSTEMI patient was taken emergently to cardiac catheterization lab.
Progress Note - Lactation Nurse
Subjective
Date of Service: August 09, 2024
Patient now chest pain/indigestion free. He was able to ambulate around the room without anginal symptoms or shortness of breath. He reports he feels great and is eager to go home
Objective
Labs:
08/09/24 03:15
08/09/24 03:15
Labs
Hgb 14.3 g/dL (13.0-18.0) 08/09/24 03:15
Hct 42.3 % (39.0-52.0) 08/09/24 03:15
Plt Count 137 10^3/uL (130-400) 08/09/24 03:15
APTT 30.1 Sec (23.4-35.0) 08/08/24 16:46
Sodium 139 mmol/L (135-145) 08/09/24 03:15
Potassium 3.9 mmol/L (3.5-5.1) 08/09/24 03:15
BUN 26 mg/dl (9-20) H 08/09/24 03:15
Creatinine 1.2 mg/dL (0.7-1.3) 08/09/24 03:15
Glucose 99 mg/dl (70-99) 08/09/24 03:15
Troponins
08/08/24 08/08/24
15:47 22:17
Troponin I 0.379 H* 0.288 H*
Vital Signs and I&O:
Vital Signs
Temp Pulse Resp BP Pulse Ox
98.2 F 57 18 162/92 99
08/09/24 07:06 08/09/24 03:07 08/09/24 07:06 08/09/24 03:07 08/09/24 07:06
Vital Signs
Temp Pulse Resp BP Pulse Ox
98.2 F 57 18 162/92 99
08/09/24 07:06 08/09/24 03:07 08/09/24 07:06 08/09/24 03:07 08/09/24 07:06
Intake & Output
08/07/24 08/08/24 08/09/24 08/10/24
06:59 06:59 06:59 06:59
Intake Total 1700 / 1700
Output Total 1000 / 1000
Balance 700 / 700
Physical Exam
Physical Exam
GEN: No distress, awake, Ox3 sitting up in bed
HEENT: supple, anicteric, mmm
LUNGS: CTA, no wheezes/rales
CV: Reg, S1/S2, no murmur, rub or gallop
ABD: soft, BS+, NT/ND
EXT: No edema, clubbing or cyanosis; Right radial access site with hemostasis. Dressing clean dry intact. Ecchymosis noted in distal forearm and thumb without hematoma. Positive radial and ulnar pulses
NEURO: Gross non-focal
SKIN: No rash, warm, dry, pink
[2024-08-09] MEDS: ZYRTEC 10 MG PO (08:35)
[2024-08-09] MEDS: NORVASC 5 MG PO (08:35)
[2024-08-09] MEDS: BRILINTA 90 MG PO (08:35)
[2024-08-09] MEDS: PEPCID 10 MG PO (08:36)
[2024-08-09] MEDS: ZETIA 10 MG PO (08:40)
[2024-08-09] MEDS: LYRICA 75 MG PO (08:40)
[2024-08-09 09:32] VITALS: BP 166/92; PULSE 59; O2SAT 99
[2024-08-09] MEDS: ZESTRIL 40 MG PO (09:34)
[2024-08-09 09:43] VITALS: BP 166/92; PULSE 58; O2SAT 99
--- NOTE | 2024-08-09 09:51 | W.DS.TRANS ---
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
-
Discharge Instructions:
Discharge Diagnosis/Procedures NSTEMI, Angioplasty with stent to LAD
Diet Low Cholesterol
Activity As tolerated
Additional Activity Avoid using right arm/wrist repetitively for 1
week; no heavy lifting more than 10 pounds with
right arm for 1 week
Driving Restrictions No driving for 24 hours
Bathing Restrictions None
Other Services Cardiac Rehab
Instructions:
Stand-Alone Forms: DC Instructions- Cath/EP Lab
Changes to Home Medications: Yes
Discharge Medications:
DC Medications w/original date entered in [employer]
amlodipine 5 mg tablet 5 mg PO DAILY Blood Pressure 12/11/18
aspirin 81 mg tablet,delayed release (Adult Low Dose Aspirin) 81 mg PO HS Blood Clot Prevention/Tx 12/11/18
cetirizine 10 mg tablet 10 mg PO DAILY Allergies 12/11/18
diazepam 10 mg tablet (Valium) 5 mg PO HS 12/11/18
lisinopril 40 mg tablet 40 mg PO DAILY Blood Pressure 12/11/18
famotidine 20 mg tablet 10 mg PO DAILY Gastrointestinal Issue 02/11/20
alfuzosin 10 mg tablet,extended release 24 hr 10 mg PO QPM Urinary Issue 08/08/24
evolocumab 140 mg/mL subcutaneous pen injector (Repatha SureClick) 140 mg SC Q2W High Cholesterol 08/08/24
oxycodone-acetaminophen 5 mg-325 mg tablet 1 tab PO Q4HPRN PRN severe pain 08/08/24
pregabalin 75 mg capsule 75 mg PO TID 08/08/24
trazodone 100 mg tablet 50 mg PO HS Mental Health/Anxiety 08/08/24
ezetimibe 10 mg tablet 10 mg PO DAILY #90 tabs 08/09/24
ticagrelor 90 mg tablet (Brilinta) 90 mg PO BID #60 tabs 08/09/24
Home Medication Changes
New to Brilinta 90 mg twice daily
New to Zetia 10 mg daily
Stop Celebrex
Pending Results: No
Total time spent discharging patient (in min): 37
[2024-08-09 09:52] LABS: Glycohemoglobin (HgbA1c) 5.2 % (4.0-5.6)
== END 2024-08-09 10:50 | disposition home or self-care (01) ==
LOC: CATH 17:18
PROVIDERS: Clinical Nurse Specialist Family Health; ATTENDING PHYSICIAN Internal Medicine Interventional Cardiology; CONSULT PHYSICIAN Internal Medicine Cardiovascular Disease; EMERGENCY PHYSICIAN Emergency Medicine
DX: I21.4 Non-ST elevation (NSTEMI) myocardial infarction (principal); I25.10 Atherosclerotic heart disease of native coronary artery without angina pectoris; Z79.02 Long term (current) use of antithrombotics/antiplatelets; Z79.82 Long term (current) use of aspirin; I10 Essential (primary) hypertension; E78.5 Hyperlipidemia, unspecified; I12.9 Hypertensive chronic kidney disease with stage 1 through stage 4 chronic kidney disease, or unspecified chronic kidney disease; N18.32 Chronic kidney disease, stage 3b; Z79.899 Other long term (current) drug therapy; I44.7 Left bundle-branch block, unspecified; I73.9 Peripheral vascular disease, unspecified; E78.00 Pure hypercholesterolemia, unspecified; F17.210 Nicotine dependence, cigarettes, uncomplicated; G62.9 Polyneuropathy, unspecified; I71.40 Abdominal aortic aneurysm, without rupture, unspecified; G89.29 Other chronic pain; I47.19 Other supraventricular tachycardia; M19.90 Unspecified osteoarthritis, unspecified site; Z79.1 Long term (current) use of non-steroidal anti-inflammatories (NSAID); Z83.3 Family history of diabetes mellitus; Z82.49 Family history of ischemic heart disease and other diseases of the circulatory system; K21.9 Gastro-esophageal reflux disease without esophagitis; I49.3 Ventricular premature depolarization
CPT/HCPCS: 80053; 80061; 83036; 83735; 84484; 85025; 85347; 85730; 93005; 93458; 96374; 97162; 97166; 99291; C1725; C1769; C1874; C1894; C9600

== ENCOUNTER → 2024-09-25 12:59 | Outpatient (REF) | payer MEDICARE, OTHER, SELFPAY | LOC: RAD 12:59 | PROVIDERS: ATTENDING PHYSICIAN Registered Nurse; FAMILY PHYSICIAN Family Medicine | DX: I73.9 Peripheral vascular disease, unspecified (principal); I71.40 Abdominal aortic aneurysm, without rupture, unspecified | CPT/HCPCS: 76770; 93922; 93925 ==

== ENCOUNTER 2024-11-02 13:44 | Emergency (ER) | payer MEDICARE, OTHER, SELFPAY ==
[2024-11-02 13:54] VITALS: BP 132/69
[2024-11-02 14:11] LABS: % Basophils 0.5 % (0-2); % Eosinophils 1.2 % (0-6); % Immature Granulocytes 0.3 % (0-0.5); % Lymphocytes 27.4 % (20.5-51.1); % Monocytes 7.1 % (1.7-9.3); % Neutrophils 63.5 % (42.2-75.2); Absolute Eosinophils 0.1 10^3/uL (0-0.7); Absolute Lymphocytes 1.7 10^3/uL (1.2-3.4); Absolute Monocytes 0.4 10^3/uL (0.1-0.6); Absolute Neutrophils 3.9 10^3/uL (1.4-6.5); Hematocrit 39.8 % (39.0-52.0); Hemoglobin 13.8 g/dL (13.0-18.0); Mean Corp Hgb Conc. 34.7 g/dL (33.0-37.0); Mean Corpuscular Hgb 33.5 pg (27.0-31.0); Mean Corpuscular Volume 96.6 fL (80.0-94.0); Mean Platelet Volume 9.4 fL (7.4-10.4); Nucleated Red Blood Cells % 0 % (-); Platelet Count 144 10^3/uL (130-400); Red Blood Cell Count 4.12 10^6/uL (4.70-6.10); Red Cell Dist. Width 13.7 % (11.5-14.5); White Blood Cell Count 6.1 10^3/uL (4.8-10.8)
[2024-11-02 14:25] LABS: ALT (SGPT) 32 U/L (0-50); AST (SGOT) 39 U/L (17-59); Albumin 4.4 g/dl (3.5-5.0); Alkaline Phosphatase 65 U/L (38-126); Blood Urea Nitrogen 32 mg/dl (9-20); Calcium 9.7 mg/dl (8.4-10.2); Carbon Dioxide 23 mmol/L (22-30); Chloride 105 mmol/L (98-107); Glucose 141 mg/dl (70-99); Potassium 4.6 mmol/L (3.5-5.1); Sodium 139 mmol/L (135-145); Total Bilirubin 0.8 mg/dl (0.2-1.3); Total Protein 6.5 g/dl (6.3-8.2); eGFR 56.93
[2024-11-02 14:37] LABS: Troponin I < 0.012 ng/ml
--- NOTE | 2024-11-02 15:22 | ED.GENMED ---
History of Present Illness
General
Chief Complaint: Chest Pain
Source: patient
Exam Limitations: none
Time Seen by Provider: 11/02/24 15:05
History of Present Illness
History of Present Illness:
74-year-old male with history of coronary artery disease on aspirin and Plavix presents with onset of chest discomfort last evening. He states it was at the end of the day was not doing much and had some discomfort in the center of his chest. He
took 2 sublingual nitroglycerin last evening and the pain went away he woke up this morning feeling normal. He had some increased discomfort earlier today messing around with his bird feeder. He presents here. Currently has no pain he denies
nausea shortness of breath or diaphoresis. This pain today is different than what he experienced in July when he had a non-STEMI. 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 He has no leg swelling or calf pain. No fever or cough. No other
complaints at this time
Past History
Past History
ED Past Medical History: GERD, HTN, Hypercholesterolemia and Other (Peripheral vascular disease, kidney stones)
ED Past Surgical History: Orthopedic, Urological and Other
Social History
Tobacco: Non-smoker
Alcohol: Occasional
Drug: None
Living: with family
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
Family History
Family History: Other (Noncontributory)
Phy Exam
Physical Exam
Physical Exam:
General: Well-appearing male no acute respiratory distress
HEENT: Normocephalic atraumatic
Heart: Regular rate and rhythm no murmurs
Lungs: Clear no wheeze
Extremities: No cyanosis or edema
Skin warm no rash
Scores
Heart Score for Chest Pain Patients
STEMI patient?: No
History: Moderately Suspicious
ECG: Normal
Age: >/= 65 years
Risk Factors: >/= 3 Risk Factors or History of CAD
Troponin: </= Normal Limit
Heart Score for Chest Pain Patients: 5
Heart Score Risk: 20.3% MACE over next 6 weeks
Course
Orders/Labs/Results
Orders:
Orders
11/02/24 13:45
Electrocardiogram (*1) Urgent
Reason for Study: Chest Pain
EKG- Treatment ONCE
11/02/24 14:05
Complete Blood Count/With Diff Urgent
Comprehensive Metabolic Panel Urgent
Troponin I Urgent
Abnormal Lab Results
11/02/24
14:05
RBC 4.12 L 10^6/uL
(4.70-6.10)
MCV 96.6 H fL
(80.0-94.0)
MCH 33.5 H pg
(27.0-31.0)
BUN 32 H mg/dl
(9-20)
Glucose 141 H mg/dl
(70-99)
11/02/24 14:05
11/02/24 14:05
Vital Signs
Initial and Last Documented VS:
Initial Vital Signs
Temp Pulse Resp BP Pulse Ox
97.6 F 57 18 132/69 100
11/02/24 13:54 11/02/24 13:54 11/02/24 13:54 11/02/24 13:54 11/02/24 13:54
Last Documented Vital Signs
Temp Pulse Resp BP Pulse Ox
97.6 F 57 18 132/69 100
11/02/24 13:54 11/02/24 13:54 11/02/24 13:54 11/02/24 13:54 11/02/24 13:54
MDM/Problems Addressed
Differential Diagnosis Includes:
Chest pain. Differential could include ACS versus musculoskeletal chest pain versus reflux. Pain is resolved vital signs are stable do not suspect PE or dissection.
I reviewed records from last visit. He had a non-STEMI with a peak troponin of 0.348. This was high at the onset of times. His symptoms today are different. His troponin is undetectable and symptoms started last evening. Did recommend repeat
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 Explained that this would complete workup without the repeat troponin that we may be missing subtle cardiac injuries. He understood this.
Given resolution of symptoms and duration of symptoms he is a reasonable candidate for discharge with chest pain follow-up. Discussed with emergency room attending. EKG shows chronic left bundle branch block without ischemic changes otherwise.
*Critical Care Note
Total Time (30-74mins, 75-104mins- exclusive of procedures): Not Applicable
ED Attending Note
-
Portions of this chart may have been created with voice recognition software.� Occasional wrong word or��sound alike� substitutions may have occurred due to the inherent limitations of voice recognition software.
Discharge Plan
Departure
Patient Disposition: Home (Routine Discharge)
Date of Disposition: 11/02/24
Time of Disposition: 15:25
Patient with high blood pressure during this ER visit?: No
Discharge Problem:
Chest pain
Instructions: Chest Pain DCA Follow Up
Prescriptions:
No Action
cetirizine 10 MG tablet
10 mg PO DAILY
amlodipine 5 MG tablet
5 mg PO DAILY
aspirin [Adult Low Dose Aspirin] 81 MG tablet,delayed release (DR/EC)
81 mg PO HS
diazepam [Valium] 10 MG tablet
5 mg PO HS
lisinopril 40 MG tablet
40 mg PO DAILY
famotidine 20 MG tablet
10 mg PO DAILY
oxycodone-acetaminophen 5-325 mg Tablet
1 tab PO Q4HPRN PRN (Reason: severe pain)
trazodone 100 mg Tablet
50 mg PO HS
alfuzosin 10 mg Tablet Extended Release 24 Hr
10 mg PO QPM
pregabalin 75 mg Capsule
75 mg PO TID
Repatha SureClick 140 mg/mL Pen Injector
140 mg SC Q2W
Brilinta 90 mg Tablet
90 mg PO BID Qty: 60 5RF
ezetimibe 10 mg Tablet
10 mg PO DAILY Qty: 90 3RF
Referrals:
Osmany Mendenhall DO [Family Provider] -
Activity Restrictions/Additional Instructions:
Please return here for any worsening symptoms otherwise follow-up with your sea captain
Interventions
Interventions:
*Risk Screen - Suicide Last Done: 11/02/24 13:54
*General Assessment Last Done: 11/02/24 13:54
*ED COVID-19 Vaccine History Last Done: 11/02/24 13:54
Discharge Date and Time
Print Language: [place]
[2024-11-02 15:43] VITALS: BMI 26.6
[2024-11-02 15:45] VITALS: BP 139/75; BP 152/79
== END 2024-11-02 15:59 | disposition home or self-care (01) ==
LOC: EMR 13:44
PROVIDERS: Emergency Medicine; EMERGENCY PHYSICIAN Emergency Medicine; FAMILY PHYSICIAN Family Medicine
DX: R07.89 Other chest pain (principal); I10 Essential (primary) hypertension; I25.10 Atherosclerotic heart disease of native coronary artery without angina pectoris; E78.00 Pure hypercholesterolemia, unspecified; K21.9 Gastro-esophageal reflux disease without esophagitis; I73.9 Peripheral vascular disease, unspecified; I25.2 Old myocardial infarction; Z87.442 Personal history of urinary calculi; Z79.82 Long term (current) use of aspirin; Z79.02 Long term (current) use of antithrombotics/antiplatelets; Z88.6 Allergy status to analgesic agent; Z88.5 Allergy status to narcotic agent
CPT/HCPCS: 99283; 80053; 84484; 85025; 93005

== ENCOUNTER → 2025-04-07 08:55 | Outpatient (REF) | payer MEDICARE, OTHER, SELFPAY | LOC: RAD 08:55 | PROVIDERS: ATTENDING PHYSICIAN Surgery Vascular Surgery; FAMILY PHYSICIAN Family Medicine | DX: I73.9 Peripheral vascular disease, unspecified (principal) | CPT/HCPCS: 93922; 93925 ==